=== PATIENT | male | born 1995 | race Asian ===

== ENCOUNTER 2022-11-15 19:50 | Emergency (ER) | payer OTHER ==
[~2022-11-15] VITALS: Ht 165.1 cm; Wt 65.8 kg
[2022-11-15 20:14] LABS: PLATELET COUNT 268 K/uL (142-355)
[2022-11-15 20:18] LABS: POTASSIUM 3.1 mmol/L (3.6-5.2)
[2022-11-15 20:46] LABS: PARTIAL THROMBOPLASTIN TIME 28.2 SECONDS (24.5-33.6)
[2022-11-16 04:56] LABS: POTASSIUM 4.2 mmol/L (3.6-5.2)
[2022-11-16 07:03] VITALS: BP 120/79
== END 2022-11-16 07:03 | disposition home or self-care (01) ==
LOC: ED 19:57
PROVIDERS: Family Medicine
DX: F10.129 Alcohol abuse with intoxication, unspecified (principal); Y90.6 Blood alcohol level of 120-199 mg/100 ml; R41.82 Altered mental status, unspecified
CPT/HCPCS: 80048; 80053; 80307; 80320; 81002; 82550; 84484; 85027; 85610; 85730; 93005; 96361; 96365; 96375; 99285; J3411; J3475; J3490